=== PATIENT | male | born 1970 ===

== ENCOUNTER → 2022-06-30 | Day surgery (SDC) | payer OTHER ==
[~2022-06-30] VITALS: Ht 182.9 cm; Wt 90.7 kg
[~2022-06-30] MED LIST: CLONAZEPAM0.5 MG PO; COZAAR25 MG PO; PERCOCET 5-3251 EACH PO; ZOLOFT25 MG PO
== END | disposition home or self-care (01) ==
LOC: ADM 06-26 07:15 → CIR.AMB 07:20
PROVIDERS: ATTEND Surgery
DX: N52.01 Erectile dysfunction due to arterial insufficiency (principal); I10 Essential (primary) hypertension
CPT/HCPCS: 54405; C1813